=== PATIENT | female | born 1960 | race Caucasian/White ===

== ENCOUNTER 2017-05-01 12:07 | Emergency (ER) | payer MEDICAID, OTHER ==
[2017-05-01] MEDS ORDERED: SODIUM CHLORIDE 0.9% FLUSH 10 ML SOL IV PRN (12:24)
[2017-05-01] MEDS ORDERED: NITROGLYCERIN 0.4 MG TAB SL PRN (12:24)
[2017-05-01] MEDS ORDERED: HEPARIN SODIUM 5000 U/ML SOL IV ONE (12:43)
[2017-05-01] MEDS ORDERED: HEPARIN SODIUM 5000 U/ML SOL ONE ×2 (12:51→13:07)
[2017-05-01] MEDS ORDERED: HEPARIN PREMIX 25,000 U/250 ML SOL IV SCH (13:15)
[2017-05-01] MEDS ORDERED: NITROGLYCERIN 0.4 MG TAB SL ONE (13:22)
[2017-05-01 14:21] VITALS: BP 134/91; PULSE 70; RESP 22; TEMP 99.6; O2SAT 97
[2017-05-01] MEDS ORDERED: PROMETHAZINE HYDROCHLORIDE 25 MG/ML SOL IV ONE (14:27)
[2017-05-01] MEDS ORDERED: PROMETHAZINE HYDROCHLORIDE 25 MG/ML SOL ONE (14:29)
== END 2017-05-01 14:45 | disposition short-term general hospital (02) | DRG 281 ==
LOC: ED 12:07
DX: I21.4 Non-ST elevation (NSTEMI) myocardial infarction (principal); I42.9 Cardiomyopathy, unspecified; Z95.0 Presence of cardiac pacemaker
CPT/HCPCS: 36415; 82550; 85610; 85730; 93005; 99285; J1644; J2550; A9270-GY

== ENCOUNTER 2017-07-23 09:42 | Day surgery (SDC) | payer OTHER ==
[~2017-07-23 09:42] MED LIST: PROPOFOL 500 MG/50 ML EMU IV ONE
[2017-07-23] MEDS ORDERED: PROPOFOL 10 MG/ML EMU IV ONE (10:46)
[2017-07-23 11:09] VITALS: O2SAT 95
[2017-07-23 11:27] VITALS: BP 117/79; PULSE 67; RESP 20; TEMP 97.4
== END 2017-07-23 12:01 | disposition home or self-care (01) | DRG 951 ==
LOC: SURG 09:42
PROVIDERS: ATTEND Surgery
DX: Z12.11 Encounter for screening for malignant neoplasm of colon (principal); D12.5 Benign neoplasm of sigmoid colon; K57.30 Diverticulosis of large intestine without perforation or abscess without bleeding; Z86.010 Personal history of colon polyps; K63.5 Polyp of colon
CPT/HCPCS: J2704

== ENCOUNTER 2017-11-06 07:09 | Day surgery (SDC) | payer OTHER ==
[2017-11-06] MEDS ORDERED: LIDOCAINE HCL 1% MPF 30 SOL ONE (07:58)
[2017-11-06] MEDS ORDERED: PROPOFOL 500 MG/50 ML EMU IV ONE (07:58)
[2017-11-06 09:10] VITALS: BP 110/74; PULSE 58; RESP 20; TEMP 97.6; O2SAT 97
== END 2017-11-06 09:30 | disposition home or self-care (01) | DRG 204 ==
LOC: SURG 07:09
PROVIDERS: ATTEND Internal Medicine Gastroenterology
DX: R05 Cough (principal); Q39.9 Congenital malformation of esophagus, unspecified; R13.10 Dysphagia, unspecified; K44.9 Diaphragmatic hernia without obstruction or gangrene; L53.8 Other specified erythematous conditions; K26.9 Duodenal ulcer, unspecified as acute or chronic, without hemorrhage or perforation; K29.70 Gastritis, unspecified, without bleeding
CPT/HCPCS: J2001; J2704

== ENCOUNTER 2018-01-23 22:19 | Emergency (ER) | payer OTHER ==
[2018-01-23 22:40] VITALS: RESP 18; TEMP 97.9
[2018-01-24 01:03] VITALS: BP 138/86; PULSE 79; O2SAT 95
== END 2018-01-23 23:40 | disposition home or self-care (01) | DRG 596 ==
LOC: ED 22:19
DX: B02.9 Zoster without complications (principal)
CPT/HCPCS: 99282